=== PATIENT | female | born 1995 | race Caucasian/White ===

== ENCOUNTER 2016-11-04 06:54 | Emergency (ER) | payer SELFPAY ==
--- NOTE | 2016-11-04 07:55 | ER Document Report ---
ED GI/ - General Chief Complaint: Urinary Problem Stated Complaint: URINARY ISSUES/PAIN Time Seen by Provider: 11/04/16 07:35 Mode of Arrival: Ambulatory Information source: Patient Notes: Patient is a 21-year-old female who presents to the ER today for lower abdominal pain that started this morning with some dysuria some white vaginal discharge and itching, concerned she has a yeast infection. She has not been sexually active since March 2016. TRAVEL OUTSIDE OF THE [place] IN LAST 30 DAYS: No - Related Data Allergies/Adverse Reactions: codeine [Codeine] Allergy (Verified 05/20/15 10:40) rash, n and v hydrocodone [Hydrocodone] Allergy (Verified 05/20/15 10:40) oxycodone HCl [From Percocet] Allergy (Verified 05/20/15 10:40) rash Penicillins Allergy (Verified 05/20/15 10:40) rash tramadol Allergy (Verified 04/17/16 10:23) Past Medical History - General Information source: Patient - Social History Smoking Status: Unknown if Ever Smoked Family History: DM, Hypertension, Malignancy, Thyroid Disfunction Patient has suicidal ideation: No Patient has homicidal ideation: No Pulmonary Medical History: Reports: Hx Bronchitis - hx of Denies: Hx Asthma Renal/ Medical History: Reports: Hx Kidney Stones. Denies: Hx Peritoneal Dialysis Musculoskeltal Medical History: Denies Hx Arthritis, Reports Hx Musculoskeletal Trauma Psychiatric Medical History: Reports: Hx Anxiety Past Surgical History: Reports: Hx Appendectomy, Hx Kidney (Renal Surgery) - stents, Hx Nose Surgery - sinus surgery, Hx Orthopedic Surgery - right knee. Denies: Hx Hysterectomy, Hx Pacemaker - Immunizations Hx Diphtheria, Pertussis, Tetanus Vaccination: Yes Review of Systems - Review of Systems Constitutional: No symptoms reported. denies: Chills, Fever EENT: No symptoms reported Cardiovascular: No symptoms reported Respiratory: No symptoms reported Gastrointestinal: No symptoms reported Genitourinary: See HPI Female Genitourinary: See HPI Musculoskeletal: No symptoms reported Skin: No symptoms reported Hematologic/Lymphatic: No symptoms reported Neurological/Psychological: No symptoms reported Physical Exam - Vital signs Vitals: Temp Pulse Resp BP Pulse Ox 98.2 F 57 L 16 125/71 100 11/04/16 06:58 11/04/16 06:58 11/04/16 06:58 11/04/16 06:58 11/04/16 06:58 - Notes Notes: PHYSICAL EXAMINATION: GENERAL: Comfortable, but is in no acute distress. HEAD: Atraumatic, normocephalic. EYES: Pupils equal round and reactive to light, extraocular movements intact, sclera anicteric, conjunctiva are normal. NECK: Normal range of motion, supple without lymphadenopathy LUNGS: CTAB and equal. No wheezes rales or rhonchi. HEART: Regular rate and rhythm without murmurs ABDOMEN: Soft, Suprapubic tenderness. No guarding, no rebound BACK: no vertebral tenderness, normal ROM GI/: no CVA tenderness pelvic: white thick discharge in vaginal canal, normal tenderness to exam, no CMT, no adnexal tenderness EXTREMITIES: Normal range of motion, no pitting edema. No cyanosis. NEUROLOGICAL: Cranial nerves grossly intact. Normal sensory/motor exams. PSYCH: Normal mood, normal affect. SKIN: Warm, Dry, normal turgor, no rashes or lesions noted Course - Re-evaluation Re-evalutation: 11/04/16 11:10 pt did not want to wait for chlamydia/gonorrhea testing, some WBC on wet mount, no yeast or trichomonas, some leukocytes on urinalysis, will treat for uti with symptoms and also for bacterial vaginosis with white thick discharge in vaginal canal. - Vital Signs Vital signs: Temp Pulse Resp BP Pulse Ox 98.8 F 57 L 16 114/66 100 11/04/16 09:00 11/04/16 09:00 11/04/16 09:00 11/04/16 09:00 11/04/16 09:00 - Laboratory Laboratory results interpreted by me: 11/04/16 08:15 Urine Blood SMALL H Ur Leukocyte Esterase TRACE H Urine Ascorbic Acid 40 H Procedures - Pelvic Exam Pelvic exam Time completed: 08:15 Cultures obtained: Yes Wet prep obtained: Yes Bimanual exam performed: Yes - no CMT, no adnexal tenderness Discharge - Discharge Clinical Impression: Bacterial vaginosis UTI (urinary tract infection) Qualifiers: Urinary tract infection type: acute cystitis Hematuria presence: with hematuria Qualified Code(s): N30.01 - Acute cystitis with hematuria Condition: Stable Disposition: HOME, SELF-CARE Additional Instructions: Drink plenty of water. Return immediately for any new or worsening symptoms. Follow up with primary care provider, call tomorrow to make followup appointment. Prescriptions: Cephalexin Monohydrate [Keflex 500 mg Capsule] 500 mg PO Q6H 5 Days Metronidazole [Flagyl 500 mg Tablet] 500 mg PO BID #14 tablet
[2016-11-04] MEDS ORDERED: IBUPROFEN 800 MG TABLET PO ONE (08:15)
[2016-11-04 08:34] LABS: APPEARANCE,URINE SLIGHTLY-CLOUDY; BILIRUBIN,URINE NEGATIVE (NEGATIVE); GLUCOSE, URINE NEGATIVE (NEGATIVE); KETONES,URINE NEGATIVE (NEGATIVE); LEUKOCYTE ESTERASE,URINE TRACE (NEGATIVE); NITRITE,URINE NEGATIVE (NEGATIVE); PROTEIN,URINE NEGATIVE (NEGATIVE); URINE SPECIFIC GRAVITY 1.011; UROBILINOGEN,URINE NEGATIVE mg/dL (<2.0)
[2016-11-04 09:24] VITALS: BP 114/66
[2016-11-04 09:53] LABS: CHLAM PCR NOT DETECTED (NOT DETECT)
== END 2016-11-04 09:08 | disposition home or self-care (01) ==
LOC: ER 06:54
DX: N30.01 Acute cystitis with hematuria (principal); N76.0 Acute vaginitis; R39.198 Other difficulties with micturition; R30.9 Painful micturition, unspecified; R10.30 Lower abdominal pain, unspecified
CPT/HCPCS: 81001; 81025; 87210; 87491; 87591; 99283

== ENCOUNTER → 2016-11-06 | Outpatient (CLI) | payer SELFPAY ==
--- NOTE | 2016-11-10 07:59 | WOMENS IMAGING REPORT ---
EXAM DESCRIPTION: U/S BREAST UNILAT LIMITED COMPLETED DATE/TIME: 11/06/2016 11:13 am REASON FOR STUDY: N63, BREAST LUMP COMPARISON: None. TECHNIQUE: Real-time and static grayscale imaging performed of the left breast targeted to the area of clinical concern. Selected color Doppler images recorded. LIMITATIONS: None. FINDINGS: The patient indicates a palpable nodule on the left, at the 1 to 2 o'clock position. In this area, a red raised skin lesion is present, by ultrasound this measures 6 x 3 by mm in size an d dates completely included in the scan, likely a developing sebaceous cyst. No underlying breast pa renchymal abnormalities at the 1 to 2 o'clock position. IMPRESSION: No suspicious findings detected by ultrasound. BIRAD: 2 Benign findings. RECOMMENDATION: RECOMMENDED FOLLOW-UP: Follow-up as clinically indicated. COMMENT: The [employer] (ACR) has developed recommendations for screening MRI of the breasts in certain patient populations, to be used in conjunction with mammography. Breast MRI s urveillance may be appropriate for women with more than 20% lifetime risk of developing breast cancer as determined by genetic testing, significant family history of the disease, or history of mantle r adiation for Hodgkins Disease. ACR Practice Guidelines 2008. TECHNICAL DOCUMENTATION: JOB ID: [id number] [employer]- All Rights Reserved
== END ==
LOC: WI 12:54
PROVIDERS: ATTEND Nurse Practitioner Women's Health
DX: N63 Unspecified lump in breast (principal)
CPT/HCPCS: 76642

== ENCOUNTER 2017-02-06 20:12 | Emergency (ER) | payer SELFPAY ==
[2017-02-06 20:31] VITALS: BP 141/101
--- NOTE | 2017-02-06 21:23 | ER Document Report ---
ED General - General Chief Complaint: Back Pain Stated Complaint: BACK AND LEG PAIN Time Seen by Provider: 02/06/17 20:43 Notes: Patient is a 21-year-old female presents emergency department complaining of right thigh discomfort but also right flank pain. Patient states her right flank pain started 3 days ago. She states she is also dark urine and been going more frequently. She states she is concerned she is a urinary tract infection. Otherwise denies any nausea, vomiting, abdominal pain, fevers or chills. Suffered a right thigh injury back 2 months ago and was evaluated at [facility]. She states that she is yet to follow-up with her primary care doctor regarding her muscular injury of the site. TRAVEL OUTSIDE OF THE [place] IN LAST 30 DAYS: No - Related Data Allergies/Adverse Reactions: codeine [Codeine] Allergy (Verified 02/06/17 20:28) rash, n and v hydrocodone [Hydrocodone] Allergy (Verified 02/06/17 20:28) oxycodone HCl [From Percocet] Allergy (Verified 02/06/17 20:28) rash Penicillins Allergy (Verified 02/06/17 20:28) rash tramadol Allergy (Verified 02/06/17 20:28) Home Medications: Current Home Medications Aripiprazole [Abilify 2 mg Tablet] 2 mg PO DAILY 02/06/17 [History] Atenolol [Tenormin] 25 mg PO BID 02/06/17 [History] Buspirone HCl 1 tab PO TID 02/06/17 [History] Past Medical History - Social History Smoking Status: Current Every Day Smoker Chew tobacco use (# tins/day): No Frequency of alcohol use: Social Family History: DM, Hypertension, Malignancy, Thyroid Disfunction Patient has suicidal ideation: No Patient has homicidal ideation: No Pulmonary Medical History: Reports: Hx Bronchitis - hx of Denies: Hx Asthma Renal/ Medical History: Reports: Hx Kidney Stones. Denies: Hx Peritoneal Dialysis Musculoskeltal Medical History: Denies Hx Arthritis, Reports Hx Musculoskeletal Trauma Psychiatric Medical History: Reports: Hx Anxiety Past Surgical History: Reports: Hx Appendectomy, Hx Kidney (Renal Surgery) - stents, Hx Nose Surgery - sinus surgery, Hx Orthopedic Surgery - right knee. Denies: Hx Hysterectomy, Hx Pacemaker - Immunizations Hx Diphtheria, Pertussis, Tetanus Vaccination: Yes Review of Systems - Review of Systems Constitutional: No symptoms reported Gastrointestinal: See HPI Genitourinary: See HPI Female Genitourinary: See HPI Musculoskeletal: See HPI -: Yes All other systems reviewed and negative Physical Exam - Vital signs Vitals: Temp Pulse Resp BP Pulse Ox 98.6 F 88 18 141/101 H 97 02/06/17 20:28 02/06/17 20:28 02/06/17 20:28 02/06/17 20:28 02/06/17 20:28 - General General appearance: Appears well, Alert In distress: None - Abdominal Inspection: Normal Distension: No distension Bowel sounds: Normal Tenderness: Tender - suprapubic tenderness Organomegaly: No organomegaly - Back Back: CVA tenderness - right flank - Extremities General lower extremity: Nontender, Normal color, Normal ROM, Normal strength, Normal temperature, Normal weight bearing - Neurological Motor strength normal: LLE, RLE Additional motor exam normals: No: Weakness Sensory: Normal - Skin Skin Temperature: Warm Skin Moisture: Dry Skin Color: Normal Skin Turgor: Elastic Location of irregularity: Extremities - right thigh with evidenc eof mild eccymosis Course - Re-evaluation Re-evalutation: 02/06/17 22:03 Patient is a 21-year-old female hemodynamically stable, no acute distress afebrile. Given patient's leg complaint is chronic told her to follow-up with her primary care provider. At this time No evidence of a septic joint, gout flare, dislocation, or fracture on exam and imaging. Vitals wnl. At this time, I do not see an indication for labs or further imaging. Will discharge with conservative measures, return precautions, and follow-up recommendations. Urinalysis does show evidence of urinary tract infection, patient otherwise stable without concerns for sepsis. Will discharge home on p.o. antibiotics and to follow-up with primary care provider this week. - Vital Signs Vital signs: Temp Pulse Resp BP Pulse Ox 98.6 F 88 18 141/101 H 97 02/06/17 20:28 02/06/17 20:28 02/06/17 20:28 02/06/17 20:28 02/06/17 20:28 - Laboratory Laboratory results interpreted by me: 02/06/17 21:15 Urine Protein 100 H Urine Ketones TRACE H Urine Blood MODERATE H Urine Urobilinogen 2.0 H Ur Leukocyte Esterase MODERATE H Discharge - Discharge Clinical Impression: UTI (urinary tract infection) Qualifiers: Urinary tract infection type: acute cystitis Hematuria presence: with hematuria Qualified Code(s): N30.01 - Acute cystitis with hematuria Condition: Good Disposition: HOME, SELF-CARE Additional Instructions: URINARY TRACT INFECTION: Your evaluation indicates that you have a urinary tract infection. This is due to germs growing in the bladder. This is a common problem. This infection usually responds quickly to antibiotics. Your antibiotic should be taken exactly as prescribed. Drink plenty of fluids -- three to four quarts a day. Occasionally, a bladder anesthetic will be prescribed to help stop the feeling of urgency until the antibiotic has a chance to clear the infection. This may cause your urine to be dark orange. Certain urine infections require a culture. If the doctor obtained a culture, the results will be back in two days. You should call to see if a change in treatment is needed. A repeat urinalysis after you finish treatment is often recommended. The physician will let you know if further testing is required. Call the doctor if you develop fever, chills, flank pain, inability to urinate, or blood in the urine. ANTIBIOTIC THERAPY: You have been given an antibiotic prescription. It's important that you take all the medication, unless instructed otherwise by your physician. Failure to complete the entire course can result in relapse of your condition. Common side effects of antibiotics include nausea, intestinal cramping, or diarrhea. Women may develop vaginal yeast infections, and babies can get yeast (thrush) in the mouth following the use of antibiotics. Contact your physician if you develop significant side effects from this medication. Allergy to this antibiotic can result in hives, wheezing, faintness, or itching. If symptoms of allergy occur, stop the medication and call the doctor. TRIMETHOPRIM-SULFA: You have been given a prescription for trimethoprim-sulfa (TMS, Septra, Bactrim). This is a combination antibiotic of the sulfa class, often used for urinary tract infections, middle ear infections, bronchitis, shigella intestinal infection, and Pneumocystis pneumonia. TMS is usually well-tolerated. Occasional side effects include nausea and decreased appetite. Septra is not recommended for infants less than two months of age. Do not take this medication if you have experienced severe side effects or allergy to sulfa medicine. You should stop this medicine at once and contact your physician if you develop any rash, joint pain, shortness of breath, bruising, or jaundice ( yellow color in the skin), or if you develop any other new or unusual symptoms. FOLLOW-UP CARE: If you have been referred to a physician for follow-up care, call the physician s office for an appointment as you were instructed or within the next two days. If you experience worsening or a significant change in your symptoms, notify the physician immediately or return to the Emergency Department at any time for re-evaluation. Prescriptions: Sulfamethoxazole/Trimethoprim [Bactrim Ds Tablet] 1 each PO BID #6 tablet Referrals: SIXTO OSBORN FNP [NURSE PRACTITIONER] - Follow up in 3-5 days
[2017-02-06 21:34] LABS: APPEARANCE,URINE SLIGHTLY-CLOUDY; BILIRUBIN,URINE NEGATIVE (NEGATIVE); GLUCOSE, URINE NEGATIVE (NEGATIVE); KETONES,URINE TRACE mg/dL (NEGATIVE); LEUKOCYTE ESTERASE,URINE MODERATE (NEGATIVE); NITRITE,URINE NEGATIVE (NEGATIVE); PROTEIN,URINE 100 mg/dL (NEGATIVE); URINE SPECIFIC GRAVITY 1.025
[2017-02-06] MEDS ORDERED: SULFAMETHOXAZOLE/TRIMETHOPRIM 800-160 MG TABLET PO ONE (21:41)
== END 2017-02-06 21:54 | disposition home or self-care (01) ==
LOC: ER 20:12
DX: N30.01 Acute cystitis with hematuria (principal); M54.9 Dorsalgia, unspecified; M79.651 Pain in right thigh; Z79.899 Other long term (current) drug therapy; F17.200 Nicotine dependence, unspecified, uncomplicated
CPT/HCPCS: 81001; 81025; 99283

== ENCOUNTER 2018-02-11 07:19 | Emergency (ER) | payer OTHER ==
[2018-02-11 07:53] LABS: APPEARANCE,URINE SLIGHTLY-CLOUDY; BILIRUBIN,URINE NEGATIVE (NEGATIVE); CALCIUM OXALATE CRYSTALS,URINE MODERATE /HPF; COLOR,URINE YELLOW; GLUCOSE, URINE NEGATIVE (NEGATIVE); KETONES,URINE TRACE mg/dL (NEGATIVE); LEUKOCYTE ESTERASE,URINE SMALL (NEGATIVE); NITRITE,URINE NEGATIVE (NEGATIVE); PROTEIN,URINE 30 mg/dL (NEGATIVE); URINE SPECIFIC GRAVITY 1.031
--- NOTE | 2018-02-11 08:13 | ER Document Report ---
ED GI/ - General Chief Complaint: Urinary Problem Stated Complaint: ABDOMEN PAIN Time Seen by Provider: 02/11/18 08:10 Notes: The patient is a 22 yo female who presents with increased urination and dysuria. She is also having some flank pain, RUQ pain and watery diarrhea. She has already seen her primary care physician twice for a urinary tract infection and was switched from Cipro to Levaquin and Flagyl. Patient has a history of a right urethral stent after hydronephrosis from an unknown cause a few years ago. She denies fevers, hematuria, vaginal discharge, rash or headaches. TRAVEL OUTSIDE OF THE [place] IN LAST 30 DAYS: No - Related Data Allergies/Adverse Reactions: codeine [Codeine] Allergy (Verified 02/11/18 07:37) rash, n and v hydrocodone [Hydrocodone] Allergy (Verified 02/11/18 07:37) oxycodone HCl [From Percocet] Allergy (Verified 02/11/18 07:37) rash Penicillins Allergy (Verified 02/11/18 07:37) rash tramadol Allergy (Verified 02/11/18 07:37) Past Medical History - General Information source: Patient - Social History Smoking Status: Unknown if Ever Smoked Family History: DM, Hypertension, Malignancy, Thyroid Disfunction Pulmonary Medical History: Reports: Hx Bronchitis - hx of Denies: Hx Asthma Renal/ Medical History: Reports: Hx Kidney Stones. Denies: Hx Peritoneal Dialysis Musculoskeletal Medical History: Denies Hx Arthritis, Reports Hx Musculoskeletal Trauma Psychiatric Medical History: Reports: Hx Anxiety Past Surgical History: Reports: Hx Appendectomy, Hx Kidney (Renal Surgery) - stents, Hx Nose Surgery - sinus surgery, Hx Orthopedic Surgery - right knee. Denies: Hx Hysterectomy, Hx Pacemaker - Immunizations Hx Diphtheria, Pertussis, Tetanus Vaccination: Yes Review of Systems - Review of Systems Notes: REVIEW OF SYSTEMS: CONSTITUTIONAL: -fevers, -chills EENT: -eye pain, -difficulty swallowing, -nasal congestion CARDIOVASCULAR: -chest pain, -syncope. RESPIRATORY: -cough, -SOB GASTROINTESTINAL: +RUQ abdominal pain, +nausea, +vomiting, +watery diarrhea GENITOURINARY: +dysuria, -hematuria MUSCULOSKELETAL: +right flank pain, -neck pain SKIN: -rash or skin lesions. HEMATOLOGIC: -easy bruising or bleeding. LYMPHATIC: -swollen, enlarged glands. NEUROLOGICAL: -altered mental status or loss of consciousness, -headache, - neurologic symptoms PSYCHIATRIC: -anxiety, -depression. ALL OTHER SYSTEMS REVIEWED AND NEGATIVE. Physical Exam - Vital signs Vitals: Temp Pulse Resp BP Pulse Ox 98.4 F 81 18 133/76 H 100 02/11/18 07:24 02/11/18 07:24 02/11/18 07:24 02/11/18 07:24 02/11/18 07:24 - Notes Notes: PHYSICAL EXAMINATION: GENERAL: Well-appearing, well-nourished and in no acute distress. HEAD: Atraumatic, normocephalic. EYES: Pupils equal round and reactive to light, extraocular movements intact, sclera anicteric, conjunctiva are normal. ENT: nares patent, oropharynx clear without exudates. Moist mucous membranes. NECK: Normal range of motion, supple without lymphadenopathy LUNGS: Breath sounds clear to auscultation bilaterally and equal. No wheezes rales or rhonchi. HEART: Regular rate and rhythm without murmurs ABDOMEN: Soft, mild RUQ tenderness, normoactive bowel sounds. No guarding, no rebound. No masses appreciated. EXTREMITIES: Normal range of motion, no pitting or edema. No cyanosis. BACK: Mild right CVA tenderness. NEUROLOGICAL: Cranial nerves grossly intact. Normal speech, normal gait. Normal sensory and motor exams. PSYCH: Normal mood, normal affect. SKIN: Warm, Dry, normal turgor, no rashes or lesions noted. Course - Re-evaluation Re-evalutation: Patient with chronic dysuria, right upper quadrant pain, right flank pain and watery diarrhea. Blood work is unremarkable and urine shows a possible UTI. She is already on Levaquin. Looking through prior microbiology results, she frequently grows out lactobacillus from her urinary cultures. Her last bacterial UTI in 2011 grew out Proteus, which was pansensitive. We will not switch her antibiotic, but will add Pyridium to help with her dysuria symptoms. CT abdomen pelvis obtained due to right flank pain with calcium oxalate crystals, but no renal stones were seen. Right upper quadrant ultrasound also performed to assess for gallbladder pathology, but the gallbladder was not seen on the ultrasound. Her LFTs and bilirubin were normal. Will begin her on Prilosec and Zofran with follow-up at her primary care physician and urologist. - Vital Signs Vital signs: Temp Pulse Resp BP Pulse Ox 98.4 F 81 18 133/76 H 100 02/11/18 07:24 02/11/18 07:24 02/11/18 07:24 02/11/18 07:24 02/11/18 07:24 - Laboratory Result Diagrams: 02/11/18 09:45 02/11/18 09:45 Laboratory results interpreted by me: 02/11/18 02/11/18 07:30 09:45 Direct Bilirubin 0.5 H Urine Protein 30 H Urine Ketones TRACE H Urine Blood MODERATE H Urine Urobilinogen 2.0 H Ur Leukocyte Esterase SMALL H - Diagnostic Test Radiology reviewed: Image reviewed, Reports reviewed Radiology results interpreted by me: CT A/P: NAD RUQ US: Gallbladder not visualized, no other acute changes Discharge - Discharge Clinical Impression: Dysuria Abdominal pain Qualifiers: Abdominal location: upper abdomen, unspecified Qualified Code(s): R10.10 - Upper abdominal pain, unspecified Nausea & vomiting Qualifiers: Vomiting type: unspecified Vomiting Intractability: non-intractable Qualified Code(s): R11.2 - Nausea with vomiting, unspecified Condition: Good Disposition: HOME, SELF-CARE Additional Instructions: ABDOMINAL PAIN: There are many causes of abdominal pain. Pain can mean a serious problem requiring surgery (such as appendicitis). It can also be an innocent problem that goes away on its own (such as a viral infection). Often, time must pass to determine the cause of pain. The physician does not feel that hospitalization is necessary, at present. Things may change within the next 24 hours. Call the doctor or come back for re- examination if any problems occur, such as: (1) Pain that becomes more severe, steady, or becomes concentrated in one specific area. Also, pain that is more severe with movement or coughing. (2) Vomiting that persists or becomes more frequent. (3) Blood in the vomitus, urine, or bowel movements. Blood in the stool may have a tarry or black appearance. (4) Shaking chills or fever greater than 100 degrees F. (5) The abdomen becomes more distended or swollen. (6) Bowel movements cease. (7) Failure to improve as expected. NORMAL EXAM AND WORKUP: At this time, your examination and workup show no significant abnormality. No significant abnormal physical findings are noted. All laboratory, EKG, and imaging (x-ray, CT scans, ultrasound) studies that were ordered show no significant abnormality. Although your examination and all studies that were ordered showed no significant abnormal finding, there are no examinations and no studies that are 100% accurate. There is always the possibility that some abnormality could exist and not be detected with physical examination or within the limits and capabilities of laboratory and other studies. You should return or follow up as you were instructed on your visit today for further evaluation if your symptoms do not resolve. ANTINAUSEA MEDICATION: You have been given a medication to suppress nausea and vomiting. This type of medication can be given as a shot, pill, or suppository. It will usually last for many hours. Pills and shots usually last six to eight hours, suppositories last about 12 hours. For the typical illness, only one or two doses of the medication may be necessary. Mild lightheadedness may occur. This type of medicine can cause drowsiness. Do not drive or operate dangerous machinery while under its influence. Do not mix with alcohol. See your doctor at once if you have muscle spasms or tightness, or uncontrollable motions (particularly of the neck, mouth, or jaw). Persistent vomiting or severe lightheadedness should also be evaluated by the physician. FOLLOW-UP CARE: If you have been referred to a physician for follow-up care, call the physician s office for an appointment as you were instructed or within the next two days. If you experience worsening or a significant change in your symptoms, notify the physician immediately or return to the Emergency Department at any time for re-evaluation. URINARY ANESTHETIC AGENT: You have been given a medication (Pyridium) for urinary tract discomfort. This medicine numbs the lining of the bladder and urethra, resulting in less pain, burning, and urgency. You may take it as needed, according to instructions. When the symptoms resolve, you can stop this medication (be sure to continue any other medications the doctor has given you). This medicine turns the urine a dark orange. It may stain underwear. Occasionally, it can cause nausea. Return for evaluation if there are any unexpected effects, such as itching, hives, or shortness of breath. FOLLOW-UP CARE: If you have been referred to a physician for follow-up care, call the physician s office for an appointment as you were instructed or within the next two days. If you experience worsening or a significant change in your symptoms, notify the physician immediately or return to the Emergency Department at any time for re-evaluation. Prescriptions: Omeprazole Magnesium [Prilosec Otc] 20 mg PO Q12H #14 tablet. Ondansetron [Zofran Odt 4 mg Tablet] 1 - 2 tab PO Q4H PRN #15 tab.rapdis PRN Reason: For Nausea/Vomiting Phenazopyridine HCl [Pyridium 200 mg Tablet] 200 mg PO TID #15 tablet Referrals: SIXTO OSBORN FNP [Primary Care Provider] - Follow up as needed KURT BARLOW MD [ACTIVE STAFF] - Follow up as needed
[2018-02-11] MEDS ORDERED: KETOROLAC TROMETHAMINE INJ/PF 30 MG/1 ML SDV IV ONE (08:26)
[2018-02-11] MEDS ORDERED: ONDANSETRON HCL INJ/PF 4 MG/2 ML SDV IV ONE (08:26)
[2018-02-11] MEDS ORDERED: NORMAL SALINE 1000 ML 1,000 ML IV ONE (08:26)
--- NOTE | 2018-02-11 09:02 | RADIOLOGY REPORT (SQ) ---
EXAM DESCRIPTION: CT ABD/PELVIS NO ORAL OR IV COMPLETED DATE/TIME: 02/11/2018 8:36 am REASON FOR STUDY: right flank pain into groin, CaOx crystals in UA COMPARISON: 04/19/2011. TECHNIQUE: CT scan of the abdomen and pelvis performed without intravenous or oral contrast. Images reviewed with lung, soft tissue, and bone windows. Reconstructed coronal and sagittal MPR images revi ewed. All images stored on PACS. All CT scanners at this facility use dose modulation, iterative reconstruction, and/or weight based d osing when appropriate to reduce radiation dose to as low as reasonably achievable (ALARA). [facility]: Dose Right [facility]: CareDose [facility]: Dose Right [facility]: Teradose 4D [facility]: [employer] RADIATION DOSE: CT Rad equipment meets quality standard of care and radiation dose reduction techniq ues were employed. CTDIvol: 5.3 mGy. DLP: 261 mGy-cm.mGy. LIMITATIONS: None. FINDINGS: LOWER CHEST: No significant findings. No nodules or infiltrates. NON-CONTRASTED LIVER, SPLEEN, ADRENALS: Evaluation limited by lack of IV contrast. No identified sign ificant masses. PANCREAS: No masses. No peripancreatic inflammatory changes. GALLBLADDER: No identified stones by CT criteria. No inflammatory changes to suggest cholecystitis. RIGHT KIDNEY AND URETER: No suspicious masses. Assessment limited by lack of IV contrast. No signif icant calcifications. No hydronephrosis or hydroureter. LEFT KIDNEY AND URETER: No suspicious masses. Assessment limited by lack of IV contrast. No signifi cant calcifications. No hydronephrosis or hydroureter. AORTA AND RETROPERITONEUM: No aneurysm. No retroperitoneal masses or adenopathy. BOWEL AND PERITONEAL CAVITY: No obvious masses or inflammatory changes. No free fluid. APPENDIX: Surgically absent. PELVIS, BLADDER, AND ABDOMINAL WALL:No abnormal masses. No free fluid. Bladder normal. BONES: No significant findings. OTHER: No other significant finding. IMPRESSION: NO SIGNIFICANT OR ACUTE PROCESS IN THE ABDOMEN OR PELVIS. COMMENT: Quality ID # [id number]: Final reports with documentation of one or more dose reduction techniques (e.g., Automated exposure control, adjustment of the mA and/or kV according to patient size, use of iterative reconstruction technique) TECHNICAL DOCUMENTATION: JOB ID: [id number] [employer]- All Rights Reserved Reading location - IP/workstation name: [email or web address]
--- NOTE | 2018-02-11 09:29 | RADIOLOGY REPORT (SQ) ---
EXAM DESCRIPTION: U/S ABDOMEN LIMITED W/O DOP COMPLETED DATE/TIME: 02/11/2018 9:09 am REASON FOR STUDY: RUQ tenderness COMPARISON: None. TECHNIQUE: Dynamic and static grayscale images acquired of the abdomen and recorded on PACS. Additio nal selected color Doppler and spectral images recorded. LIMITATIONS: None. FINDINGS: PANCREAS: No masses. Visualized pancreatic duct normal caliber. LIVER: No masses. Echotexture normal. LIVER VASCULATURE: Normal directional flow of the main portal vein and hepatic veins. GALLBLADDER: Not visualized. ULTRASOUND-DETECTED LARA'S SIGN: Negative. INTRAHEPATIC DUCTS AND COMMON DUCT: CBD and intrahepatic ducts normal caliber. No filling defects. INFERIOR VENA CAVA: Normal flow. AORTA: No aneurysm. RIGHT KIDNEY: Normal size. Normal echogenicity. No solid or suspicious masses. No hydronephrosis. No calcifications. PERITONEAL AND RIGHT PLEURAL SPACE: No ascites or effusions. OTHER: No other significant findings. IMPRESSION: NORMAL RIGHT UPPER QUADRANT ULTRASOUND. THE GALLBLADDER IS NOT VISUALIZED BY ULTRASOUND. ON THE CT DONE EARLIER IN THE DAY, THE GALLBLADDER IS SMALL AND CONTRACTED AND LOCATED UNDER THE LEFT LOBE OF THE LIVER. NO ABNORMAL FINDING ON CT. TECHNICAL DOCUMENTATION: JOB ID: [id number] [employer]- All Rights Reserved Reading location - IP/workstation name: [email or web address]
[2018-02-11 09:58] LABS: ABSOLUTE BASOPHILS # (AUTO) 0.1 10^3/uL (0.0-0.2); ABSOLUTE EOSINOPHILS # (AUTO) 0.1 10^3/uL (0.0-0.6); ABSOLUTE LYMPHOCYTES (AUTO) 1.6 10^3/uL (0.5-4.7); ABSOLUTE MONOCYTES (AUTO) 0.5 10^3/uL (0.1-1.4); ABSOLUTE NEUT (AUTO) 4.7 10^3/uL (1.7-8.2); BASOPHILS % (AUTO) 0.8 % (0-2); EOSINOPHILS % (AUTO) 1.4 % (0-6); HEMATOCRIT 42.1 % (36.0-47.0); HEMOGLOBIN 14.5 g/dL (12.0-15.5); LYMPHOCYTES % (AUTO) 23.5 % (13-45); MEAN CORPUSCULAR HEMOGLOBIN 31.5 pg (27.0-33.4); MEAN CORPUSCULAR HGB CONC 34.5 g/dL (32.0-36.0); MEAN CORPUSCULAR VOLUME 91 fl (80-97); MONOCYTES % (AUTO) 6.8 % (3-13); PLATELET COUNT 207 10^3/uL (150-450); RED BLOOD COUNT 4.61 10^6/uL (3.72-5.28); RED CELL DISTRIBUTION WIDTH 12.6 % (11.5-14.0); SEGMENTED NEUTROPHILS % (AUTO) 67.5 % (42-78); TOTAL CELLS COUNTED % (AUTO) 100 %
[2018-02-11 10:24] LABS: ALANINE AMINOTRANSFERASE 19 U/L (9-52); ALBUMIN 4.5 g/dL (3.5-5.0); ALKALINE PHOSPHATASE 40 U/L (38-126); ANION GAP 11 (5-19); ASPARTATE AMINO TRANSFERASE 22 U/L (14-36); BILIRUBIN,DIRECT 0.5 mg/dL (0.0-0.4); BILIRUBIN,TOTAL 0.9 mg/dL (0.2-1.3); BLOOD UREA NITROGEN 18 mg/dL (7-20); CALCIUM 9.7 mg/dL (8.4-10.2); CARBON DIOXIDE 24 mmol/L (22-30); CHLORIDE 104 mmol/L (98-107); GLUCOSE 80 mg/dL (75-110); LIPASE 126.8 U/L (23-300); POTASSIUM 4.2 mmol/L (3.6-5.0); SODIUM 138.8 mmol/L (137-145); TOTAL PROTEIN 7.5 g/dL (6.3-8.2)
[2018-02-11 11:50] VITALS: BP 117/60
== END 2018-02-11 11:50 | disposition home or self-care (01) ==
LOC: ER 07:19
DX: R30.0 Dysuria (principal); R10.10 Upper abdominal pain, unspecified; R11.2 Nausea with vomiting, unspecified; R35.0 Frequency of micturition; R19.7 Diarrhea, unspecified; Z88.6 Allergy status to analgesic agent; Z88.0 Allergy status to penicillin; Z87.442 Personal history of urinary calculi
CPT/HCPCS: 99284; 96361; 96374; 96375; 36415; 87086; 83690; 85025; 81025; 80053; 81001; 76705; 74176; J1885; J2405

== ENCOUNTER → 2018-04-29 | Outpatient (CLI) | payer OTHER ==
--- NOTE | 2018-04-29 16:58 | RADIOLOGY REPORT (SQ) ---
EXAM DESCRIPTION: NM GASTRIC EMPTYING STUDY COMPLETED DATE/TIME: 04/29/2018 1:19 pm REASON FOR STUDY: N/V (R11.2) R11.2 NAUSEA WITH VOMITING, UNSPECIFIED COMPARISON: None. RADIONUCLIDE AND DOSE: 2.2 millicuries Tc-99m Sulfur Colloid. Egg salad sandwich The route of agent administration: Oral. TECHNIQUE: 1 minute serial static imaging performed at time of meal, 1 hour, 2 hours, 3 hours as nee ded. Once stomach reaches 90% emptying, the test is complete. Image intensity values plotted with re spect to time with linear regression algorithm. LIMITATIONS: None. FINDINGS: Patient was observed for 4 hours. Immediate post meal serves as baseline. Gastric emptying at 90 minutes was 72%. Gastric emptying at 180 minutes was 82%. Normal values: 60 minutes: 30-90% retained. If less than 30%, abnormally rapid emptying. If greater than 90%, del ayed gastric emptying. 120 minutes: <60% retained. If greater than 60%, delayed gastric emptying. 240 minutes: <10% retained. If greater than 10%, delayed gastric emptying. IMPRESSION: NORMAL GASTRIC EMPTYING. TECHNICAL DOCUMENTATION: JOB ID: [id number] [employer]- All Rights Reserved rev-10/01 Reading location - IP/workstation name: [email or web address]
== END ==
LOC: RAD 07:29
PROVIDERS: ATTEND Internal Medicine Gastroenterology
DX: R11.2 Nausea with vomiting, unspecified (principal)
CPT/HCPCS: 78264; A9541

== ENCOUNTER 2018-05-19 09:21 | Emergency (ER) | payer OTHER ==
--- NOTE | 2018-05-19 09:51 | ER Document Report ---
ED Medical Screen (RME) - General Chief Complaint: Flank Pain Stated Complaint: URINARY ISSUE Time Seen by Provider: 05/19/18 09:48 TRAVEL OUTSIDE OF THE [place].S. IN LAST 30 DAYS: No - Related Data Allergies/Adverse Reactions: codeine [Codeine] Allergy (Verified 05/19/18 09:22) rash, n and v hydrocodone [Hydrocodone] Allergy (Verified 05/19/18 09:22) oxycodone HCl [From Percocet] Allergy (Verified 05/19/18 09:22) rash Penicillins Allergy (Verified 05/19/18 09:22) rash tramadol Allergy (Verified 05/19/18 09:22) Past Medical History - Social History Family history: Reviewed & Not Pertinent Pulmonary Medical History: Reports: Hx Bronchitis - hx of Denies: Hx Asthma Renal/ Medical History: Reports: Hx Kidney Stones. Denies: Hx Peritoneal Dialysis Musculoskeltal Medical History: Denies Hx Arthritis, Reports Hx Musculoskeletal Trauma Psychiatric Medical History: Reports: Hx Anxiety Past Surgical History: Reports: Hx Appendectomy, Hx Kidney (Renal Surgery) - stents, Hx Nose Surgery - sinus surgery, Hx Orthopedic Surgery - right knee. Denies: Hx Hysterectomy, Hx Pacemaker - Immunizations Hx Diphtheria, Pertussis, Tetanus Vaccination: Yes Physical Exam - Vital signs Vitals: Temp Pulse Resp BP Pulse Ox 98.4 F 66 18 134/98 H 100 05/19/18 09:24 05/19/18 09:24 05/19/18 09:24 05/19/18 09:24 05/19/18 09:24 Course - Re-evaluation Re-evalutation: 05/19/18 09:50 23-year-old female with recurrent kidney infections in the past for which she has been seen by a field radio technician. She called his office yesterday because she was having intense right-sided pain which prompted her to come to the emergency room. She is once had a stent placed for hydronephrosis on the right side in 2008. There was some concern that she may potentially have underlying kidney disease. I have seen and performed a rapid medical screening examination on this patient, workup has been initiated however there will require further evaluation reassessment and disposition determination from a secondary provider. - Vital Signs Vital signs: Temp Pulse Resp BP Pulse Ox 98.4 F 66 18 134/98 H 100 05/19/18 09:24 05/19/18 09:24 05/19/18 09:24 05/19/18 09:24 05/19/18 09:24 Doctor's Discharge - Discharge Referrals: KYLE SAHA MD [Primary Care Provider] - Follow up as needed
[2018-05-19 10:26] LABS: ABSOLUTE BASOPHILS # (AUTO) 0.1 10^3/uL (0.0-0.2); ABSOLUTE EOSINOPHILS # (AUTO) 0.2 10^3/uL (0.0-0.6); ABSOLUTE LYMPHOCYTES (AUTO) 2.4 10^3/uL (0.5-4.7); ABSOLUTE MONOCYTES (AUTO) 0.5 10^3/uL (0.1-1.4); ABSOLUTE NEUT (AUTO) 4.2 10^3/uL (1.7-8.2); EOSINOPHILS % (AUTO) 2.4 % (0-6); LYMPHOCYTES % (AUTO) 32.4 % (13-45); MEAN CORPUSCULAR HEMOGLOBIN 31.6 pg (27.0-33.4); MEAN CORPUSCULAR HGB CONC 34.9 g/dL (32.0-36.0); MEAN CORPUSCULAR VOLUME 90 fl (80-97); MONOCYTES % (AUTO) 7.1 % (3-13); PLATELET COUNT 285 10^3/uL (150-450); RED BLOOD COUNT 4.76 10^6/uL (3.72-5.28); RED CELL DISTRIBUTION WIDTH 12.6 % (11.5-14.0); SEGMENTED NEUTROPHILS % (AUTO) 57.1 % (42-78); TOTAL CELLS COUNTED % (AUTO) 100 %; WHITE BLOOD COUNT 7.4 10^3/uL (4.0-10.5)
[2018-05-19 10:30] LABS: APPEARANCE,URINE CLEAR; BILIRUBIN,URINE NEGATIVE (NEGATIVE); COLOR,URINE STRAW; GLUCOSE, URINE NEGATIVE (NEGATIVE); KETONES,URINE NEGATIVE (NEGATIVE); LEUKOCYTE ESTERASE,URINE NEGATIVE (NEGATIVE); NITRITE,URINE NEGATIVE (NEGATIVE); PROTEIN,URINE NEGATIVE (NEGATIVE); URINE SPECIFIC GRAVITY 1.005; UROBILINOGEN,URINE NEGATIVE mg/dL (<2.0)
[2018-05-19 10:51] LABS: ALANINE AMINOTRANSFERASE 22 U/L (9-52); ALBUMIN 5.4 g/dL (3.5-5.0); ALKALINE PHOSPHATASE 68 U/L (38-126); ANION GAP 11 (5-19); ASPARTATE AMINO TRANSFERASE 23 U/L (14-36); BILIRUBIN,DIRECT 0.3 mg/dL (0.0-0.4); BILIRUBIN,TOTAL 0.7 mg/dL (0.2-1.3); BLOOD UREA NITROGEN 18 mg/dL (7-20); CALCIUM 10.6 mg/dL (8.4-10.2); CARBON DIOXIDE 27 mmol/L (22-30); CHLORIDE 102 mmol/L (98-107); GLUCOSE 78 mg/dL (75-110); POTASSIUM 4.6 mmol/L (3.6-5.0); SODIUM 139.6 mmol/L (137-145); TOTAL PROTEIN 8.9 g/dL (6.3-8.2)
[2018-05-19] MEDS ORDERED: ONDANSETRON HCL INJ/PF 4 MG/2 ML SDV IV ONE (10:54)
[2018-05-19] MEDS ORDERED: KETOROLAC TROMETHAMINE INJ/PF 30 MG/1 ML SDV IV ONE (10:54)
--- NOTE | 2018-05-19 11:19 | ER Document Report ---
ED General - General Chief Complaint: Flank Pain Stated Complaint: URINARY ISSUE Time Seen by Provider: 05/19/18 09:48 Notes: Patient is a 23-year-old female that presents to the emergency department for chief complaint of right flank pain. Patient reports that she is been having this pain since yesterday, and it was worse yesterday evening, she did come to the ED but was rather busy, decided to go home and see if it improved, and it is better today, she did have associated nausea and vomiting, but that is since resolved. She is had some dysuria associated with this as well as suprapubic pain. She has had issues with this in the past, has been worked up from multiple standpoints including with the urologist, who did place a stent at some point, which has since been removed, she is also seen nephrology, and has been worked up at a tertiary center, for possible granulomatous disease, however that has not been definitively diagnosed, and she is not sure what has been causing her pain they do not have a complete understanding of why she is having recurrent flank pain. She does get recurrent UTIs, but denies any recent fevers, chills, night sweats, chest pain, shortness of breath. She reports currently being on her menstrual cycle. Past Medical History: MCKENZIE, recurrent UTIs Past Surgical History: Ureteral stent Social History: Admits to smoking cigarettes, social alcohol use, denies illicit drug. Family History: Reviewed and noncontributory for presenting illness Allergies: Reviewed, see documented allergy list. REVIEW OF SYSTEMS: Other than noted above, the 12 point review of systems was reviewed with the patient and were negative, all pertinent findings are included in the HPI. PHYSICAL EXAMINATION: Vital signs reviewed, nursing noted reviewed. GENERAL: Well-appearing, well-nourished and in no acute distress. HEAD: Atraumatic, normocephalic. EYES: Eyes appear normal, extraocular movements intact, sclera anicteric, conjunctiva are normal. ENT: nares patent, oropharynx clear without exudates. Moist mucous membranes. NECK: Normal range of motion, supple without lymphadenopathy LUNGS: Breath sounds clear to auscultation bilaterally and equal. No wheezes rales or rhonchi. HEART: Regular rate and rhythm without murmurs ABDOMEN: Soft, mild right CVA tenderness with palpation, no anterior abdominal tenderness, normoactive bowel sounds. No rebound, guarding, or rigidity. No masses appreciated. EXTREMITIES: Nontender, good range of motion, no pitting or edema. NEUROLOGICAL: No focal neurological deficits. Moves all extremities spontaneously Motor and sensory grossly intact on exam. PSYCH: Normal mood, normal affect. SKIN: Warm, Dry, normal turgor, no rashes or lesions noted on exposed skin TRAVEL OUTSIDE OF THE U.S. IN LAST 30 DAYS: No - Related Data Allergies/Adverse Reactions: codeine [Codeine] Allergy (Verified 05/19/18 09:22) rash, n and v hydrocodone [Hydrocodone] Allergy (Verified 05/19/18 09:22) oxycodone HCl [From Percocet] Allergy (Verified 05/19/18:22) rash Penicillins Allergy (Verified 05/19/18:22) rash tramadol Allergy (Verified 05/19/18:) Past Medical History - Social History Smoking Status: Current Every Day Smoker Chew tobacco use (# tins/day): No Frequency of alcohol use: None Drug Abuse: None Family History: DM, Hypertension, Malignancy, Thyroid Disfunction Patient has suicidal ideation: No Patient has homicidal ideation: No Pulmonary Medical History: Reports: Hx Bronchitis - hx of Denies: Hx Asthma Renal/ Medical History: Reports: Hx Kidney Stones. Denies: Hx Peritoneal Dialysis Musculoskeletal Medical History: Denies Hx Arthritis, Reports Hx Musculoskeletal Trauma Psychiatric Medical History: Reports: Hx Anxiety Past Surgical History: Reports: Hx Appendectomy, Hx Kidney (Renal Surgery) - stents, Hx Nose Surgery - sinus surgery, Hx Orthopedic Surgery - right knee. Denies: Hx Hysterectomy, Hx Pacemaker - Immunizations Hx Diphtheria, Pertussis, Tetanus Vaccination: Yes Physical Exam - Vital signs Vitals: Temp Pulse Resp BP Pulse Ox 98.4 F 66 18 134/98 H 100 05/19/18 09:24 05/19/18 09:24 05/19/18 09:24 05/19/18 09:24 05/19/18 09:24 Course - Re-evaluation Re-evalutation: Patient seen and examined vital signs reviewed. Laboratory data and imaging were ordered as appropriate for the patient's presenting symptoms and complaint, with consideration of any critical or life threatening conditions that may be associated with their obtained history and exam as noted above. Patient was treated with IV fluids, and Zofran Results were reviewed when available and demonstrated mild hematuria in the urine, which could be contaminant from her menstrual cycle, however given her history, obtain CT abdomen and pelvis, without contrast to look for renal stone, which was negative for any acute process, her blood work was otherwise unremarkable, normal renal function. The patient was re-evaluated and was improved, pain was tolerable I discussed with her at length, the possibilities of the causes of her symptoms, from renal colic, to ureteral spasm, to possible ureteral stricture, and that she should f ollow-up with urology, as well as her pathology manager, which she is agreeable to she will make these phone calls to set up appointments Evaluation was most consistent with renal colic, patient was also given 5 days of Keflex, and Pyridium for her symptoms. Results were discussed with the patient at this point, after careful consideration I feel that that patient can be discharged from the emergency department, the patient was educated treatments and reasons to return to the emergency department based on their presumed diagnosis as noted above, they were advised to followup with a primary care physician in 2-3 days. Patient was agreeable to plan of care. *Note is created using voice recognition software and may contain spelling, syntax or grammatical errors. Laboratory 05/19/18 05/19/18 05/19/18 10:06 10:06 10:06 WBC 7.4 RBC 4.76 Hgb 15.0 Hct 43.0 MCV 90 MCH 31.6 MCHC 34.9 RDW 12.6 Plt Count 285 Seg Neutrophils % 57.1 Lymphocytes % 32.4 Monocytes % 7.1 Eosinophils % 2.4 Basophils % 1.0 Absolute Neutrophils 4.2 Absolute Lymphocytes 2.4 Absolute Monocytes 0.5 Absolute Eosinophils 0.2 Absolute Basophils 0.1 Sodium 139.6 Potassium 4.6 Chloride 102 Carbon Dioxide 27 Anion Gap 11 BUN 18 Creatinine 0.69 Est GFR ( Amer) > 60 Est GFR (Non-Af Amer) > 60 Glucose 78 Calcium 10.6 H Total Bilirubin 0.7 Direct Bilirubin 0.3 Neonat Total Bilirubin Not Reportable Neonat Direct Bilirubin Not Reportable Neonat Indirect Bili Not Reportable AST 23 ALT 22 Alkaline Phosphatase 68 Total Protein 8.9 H Albumin 5.4 H Urine Color STRAW Urine Appearance CLEAR Urine pH 6.0 Ur Specific [place] 1.005 Urine Protein NEGATIVE Urine Glucose (UA) NEGATIVE Urine Ketones NEGATIVE Urine Blood MODERATE H Urine Nitrite NEGATIVE Urine Bilirubin NEGATIVE Urine Urobilinogen NEGATIVE Ur Leukocyte Esterase NEGATIVE Urine WBC (Auto) 1 Urine RBC (Auto) 2 Squamous Epi Cells Auto 1 Urine Mucus (Auto) RARE Urine Ascorbic Acid NEGATIVE Urine HCG, Qual NEGATIVE Limited or Localized CT 05/19/18 10:55 IMPRESSION: NO SIGNIFICANT OR ACUTE PROCESS IN THE ABDOMEN OR PELVIS. - Vital Signs Vital signs: Temp Pulse Resp BP Pulse Ox 98.3 F 65 16 128/76 H 100 05/19/18 12:07 05/19/18 12:07 05/19/18 12:07 05/19/18 12:07 05/19/18 12:07 - Laboratory Result Diagrams: 05/19/18 10:06 05/19/18 10:06 Laboratory results interpreted by me: 05/19/18 05/19/18 10:06 10:06 Calcium 10.6 H Total Protein 8.9 H Albumin 5.4 H Urine Blood MODERATE H Discharge - Discharge Clinical Impression: Renal colic on right side Condition: Stable Disposition: HOME, SELF-CARE Instructions: Flank Pain ([facility]) Additional Instructions: Please follow-up with your urologist that you have seen in the past. I have also listed below some urologist in the area. [email or web address] [address] [place] [facility] [email or web address] [address] [place] [address] Damon Randle [place] [facility] [email or web address] [address] Prescriptions: RX: Cephalexin Monohydrate [Keflex 500 mg Capsule] 500 mg PO BID 5 Days #10 capsule Phenazopyridine HCl [Pyridium] 200 mg PO TID #12 tablet Referrals: KYLE SAHA MD [NO LOCAL MD] - Follow up as needed
--- NOTE | 2018-05-19 11:40 | RADIOLOGY REPORT (SQ) ---
EXAM DESCRIPTION: CT LTD RENAL STONE PROTOCOL ON COMPLETED DATE/TIME: 05/19/2018 11:26 am REASON FOR STUDY: right flank pain, hematuria COMPARISON: CT abdomen pelvis 02/03/2018, 03/21/2015, 11/28/2010 TECHNIQUE: CT scan of the abdomen and pelvis performed without intravenous or oral contrast. Images reviewed with lung, soft tissue, and bone windows. Reconstructed coronal and sagittal MPR images revi ewed. All images stored on PACS. All CT scanners at this facility use dose modulation, iterative reconstruction, and/or weight based d osing when appropriate to reduce radiation dose to as low as reasonably achievable (ALARA). [facility]: Dose Right [facility]: CareDose [facility]: Dose Right [facility]: Teradose 4D [facility]: [employer] RADIATION DOSE: CT Rad equipment meets quality standard of care and radiation dose reduction techniq ues were employed. CTDIvol: 5.4 mGy. DLP: 252 mGy-cm.mGy. LIMITATIONS: None. FINDINGS: LOWER CHEST: No significant findings. No nodules or infiltrates. NON-CONTRASTED LIVER, SPLEEN, ADRENALS: Evaluation limited by lack of IV contrast. No identified sign ificant masses. PANCREAS: No masses. No peripancreatic inflammatory changes. GALLBLADDER: No identified stones by CT criteria. No inflammatory changes to suggest cholecystitis. RIGHT KIDNEY AND URETER: No suspicious masses. Assessment limited by lack of IV contrast. No signif icant calcifications. No hydronephrosis or hydroureter. LEFT KIDNEY AND URETER: No suspicious masses. Assessment limited by lack of IV contrast. No signifi cant calcifications. No hydronephrosis or hydroureter. AORTA AND RETROPERITONEUM: No aneurysm. No retroperitoneal masses or adenopathy. BOWEL AND PERITONEAL CAVITY: No obvious masses or inflammatory changes. No free fluid. APPENDIX: Surgically absent PELVIS, BLADDER, AND ABDOMINAL WALL:No abnormal masses. No free fluid. Bladder normal. BONES: No significant findings. OTHER: No other significant finding. IMPRESSION: NO SIGNIFICANT OR ACUTE PROCESS IN THE ABDOMEN OR PELVIS. COMMENT: Quality ID # [id number]: Final reports with documentation of one or more dose reduction techniques (e.g., Automated exposure control, adjustment of the mA and/or kV according to patient size, use of iterative reconstruction technique) TECHNICAL DOCUMENTATION: JOB ID: [id number] [employer]- All Rights Reserved Reading location - IP/workstation name: [email or web address]
[2018-05-19 12:08] VITALS: BP 128/76
== END 2018-05-19 12:07 | disposition home or self-care (01) ==
LOC: ER 09:21
DX: N23 Unspecified renal colic (principal); R10.9 Unspecified abdominal pain; R11.2 Nausea with vomiting, unspecified; F17.200 Nicotine dependence, unspecified, uncomplicated; Z87.440 Personal history of urinary (tract) infections; Z88.6 Allergy status to analgesic agent; Z88.0 Allergy status to penicillin; Z87.442 Personal history of urinary calculi
CPT/HCPCS: 99284; 96374; 96375; 36415; 87086; 85025; 81025; 87088; 80053; 81001; 76380; J1885; J2405

== ENCOUNTER 2018-05-24 19:30 | Emergency (ER) | payer OTHER ==
--- NOTE | 2018-05-24 20:00 | ER Document Report ---
ED Medical Screen (RME) - General Chief Complaint: Blood Pressure Problem Stated Complaint: BLOOD PRESSURE ISSUE Time Seen by Provider: 05/24/18 19:57 Notes: RAPID MEDICAL EVALUATION DISCLOSURE I have seen this patient as part of a Rapid Medical Evaluation and, if applicable, placed any initially appropriate orders. The patient will be seen and fully evaluated, including a full history and physical exam, by a provider (in Main ED or Fast Track) when a room becomes available. 23-year-old female here with complaints of episodes of feeling lightheaded, weak all over, "cold all over my body", blurry vision that initially started on Wednesday. She went to see her doctor and the blood pressure was 210/174. She was recommended to come here to the ED but she refused at that time. Her doctor put her on blood pressure medicine, of which she does not know the name, and she has been taking it daily at bedtime. The episode on that day lasted 1 hour before complete resolution. Today, the episode lasted 10 minutes but the symptoms were much more intense. She did not have any shortness of breath or chest pain. EXAM CTAB RRR TRAVEL OUTSIDE OF THE U.S. IN LAST 30 DAYS: No - Related Data Allergies/Adverse Reactions: codeine [Codeine] Allergy (Verified 05/19/18 09:22) rash, n and v hydrocodone [Hydrocodone] Allergy (Verified 05/19/18 09:22) oxycodone HCl [From Percocet] Allergy (Verified 05/19/18 09:22) rash Penicillins Allergy (Verified 05/19/18 09:22) rash tramadol Allergy (Verified 05/19/18 09:22) Past Medical History - Social History Family history: Reviewed & Not Pertinent Pulmonary Medical History: Reports: Hx Bronchitis - hx of Denies: Hx Asthma Renal/ Medical History: Reports: Hx Kidney Stones. Denies: Hx Peritoneal Dialysis Musculoskeltal Medical History: Denies Hx Arthritis, Reports Hx Musculoskeletal Trauma Psychiatric Medical History: Reports: Hx Anxiety Past Surgical History: Reports: Hx Appendectomy, Hx Kidney (Renal Surgery) - stents, Hx Nose Surgery - sinus surgery, Hx Orthopedic Surgery - right knee. Denies: Hx Hysterectomy, Hx Pacemaker - Immunizations Hx Diphtheria, Pertussis, Tetanus Vaccination: Yes Physical Exam - Vital signs Vitals: Temp Pulse Resp BP Pulse Ox 98.0 F 67 21 H 151/98 H 100 05/24/18 19:38 05/24/18 19:38 05/24/18 19:38 05/24/18 19:38 05/24/18 19:38 Course - Vital Signs Vital signs: Temp Pulse Resp BP Pulse Ox 98.0 F 67 21 H 151/98 H 100 05/24/18 19:38 05/24/18 19:38 05/24/18 19:38 05/24/18 19:38 05/24/18 19:38 Doctor's Discharge - Discharge Referrals: SIXTO OSBORN FNP [Primary Care Provider] - Follow up as needed
[2018-05-24 20:16] LABS: ABSOLUTE BASOPHILS # (AUTO) 0.1 10^3/uL (0.0-0.2); ABSOLUTE EOSINOPHILS # (AUTO) 0.2 10^3/uL (0.0-0.6); ABSOLUTE LYMPHOCYTES (AUTO) 3.1 10^3/uL (0.5-4.7); ABSOLUTE MONOCYTES (AUTO) 0.6 10^3/uL (0.1-1.4); ABSOLUTE NEUT (AUTO) 5.6 10^3/uL (1.7-8.2); EOSINOPHILS % (AUTO) 2.3 % (0-6); HEMATOCRIT 40.5 % (36.0-47.0); HEMOGLOBIN 14.2 g/dL (12.0-15.5); LYMPHOCYTES % (AUTO) 32.1 % (13-45); MEAN CORPUSCULAR HEMOGLOBIN 31.8 pg (27.0-33.4); MEAN CORPUSCULAR VOLUME 91 fl (80-97); MONOCYTES % (AUTO) 6.5 % (3-13); PLATELET COUNT 251 10^3/uL (150-450); RED BLOOD COUNT 4.46 10^6/uL (3.72-5.28); RED CELL DISTRIBUTION WIDTH 12.2 % (11.5-14.0); SEGMENTED NEUTROPHILS % (AUTO) 58.1 % (42-78); TOTAL CELLS COUNTED % (AUTO) 100 %; WHITE BLOOD COUNT 9.7 10^3/uL (4.0-10.5)
[2018-05-24 20:38] LABS: ALANINE AMINOTRANSFERASE 15 U/L (9-52); ALBUMIN 4.6 g/dL (3.5-5.0); ALKALINE PHOSPHATASE 57 U/L (38-126); ANION GAP 11 (5-19); ASPARTATE AMINO TRANSFERASE 26 U/L (14-36); BILIRUBIN,DIRECT 0.2 mg/dL (0.0-0.4); BILIRUBIN,TOTAL 0.8 mg/dL (0.2-1.3); BLOOD UREA NITROGEN 22 mg/dL (7-20); CALCIUM 9.3 mg/dL (8.4-10.2); CARBON DIOXIDE 26 mmol/L (22-30); CHLORIDE 102 mmol/L (98-107); GLUCOSE 87 mg/dL (75-110); POTASSIUM 3.4 mmol/L (3.6-5.0); SODIUM 138.5 mmol/L (137-145); TOTAL PROTEIN 7.8 g/dL (6.3-8.2)
--- NOTE | 2018-05-24 21:21 | ER Document Report ---
ED General - General Chief Complaint: Blood Pressure Problem Stated Complaint: BLOOD PRESSURE ISSUE Time Seen by Provider: 05/24/18 19:57 Notes: Patient is a 23-year-old female that comes to the emergency department for chief complaint of an episode prior to arrival where she felt lightheaded, weak, "cold all over the body", and tingling sensation in her hands and feet. She states that she did not pass out, she states that she had noticed a rash over the front of her chest and she had taken Benadryl prior to this happening. She denies di fficulty swallowing or breathing, swelling of the face, rash anywhere else, or current rash. She denies shortness of breath or chest pain. She denies fever, nausea, vomiting. She states that she was evaluated recently and found to have hypertension, she is already diagnosed with pots, she is on nadolol, cephalexin, prazosin, and an anxiety medicine that she cannot remember the name of. She den ies smoking, frequent alcohol, or any recreational drugs. She denies any current symptoms. TRAVEL OUTSIDE OF THE [place] IN LAST 30 DAYS: No - Related Data Allergies/Adverse Reactions: codeine [Codeine] Allergy (Verified 05/19/18 09:22) rash, n and v hydrocodone [Hydrocodone] Allergy (Verified 05/19/18 09:22) oxycodone HCl [From Percocet] Allergy (Verified 05/19/18 09:22) rash Penicillins Allergy (Verified 05/19/18 09:22) rash tramadol Allergy (Verified 05/19/18 09:22) Past Medical History - General Information source: Patient - Social History Smoking Status: Current Every Day Smoker Chew tobacco use (# tins/day): No Smoking Education Provided: Yes - <3 min Frequency of alcohol use: None Drug Abuse: None Lives with: Family Family History: DM, Hypertension, Malignancy, Thyroid Disfunction Patient has suicidal ideation: No Patient has homicidal ideation: No Pulmonary Medical History: Reports: Hx Bronchitis - hx of Denies: Hx Asthma Renal/ Medical History: Reports: Hx Kidney Stones. Denies: Hx Peritoneal Dialysis Musculoskeletal Medical History: Denies Hx Arthritis, Reports Hx Musculoskeletal Trauma Psychiatric Medical History: Reports: Hx Anxiety Past Surgical History: Reports: Hx Appendectomy, Hx Kidney (Renal Surgery) - stents, Hx Nose Surgery - sinus surgery, Hx Orthopedic Surgery - right knee. Denies: Hx Hysterectomy, Hx Pacemaker - Immunizations Hx Diphtheria, Pertussis, Tetanus Vaccination: Yes Review of Systems - Review of Systems Constitutional: No symptoms reported EENT: No symptoms reported Cardiovascular: See HPI Respiratory: No symptoms reported Gastrointestinal: No symptoms reported Genitourinary: No symptoms reported Female Genitourinary: No symptoms reported Musculoskeletal: No symptoms reported Skin: See HPI Hematologic/Lymphatic: No symptoms reported Neurological/Psychological: No symptoms reported Physical Exam - Vital signs Vitals: Temp Pulse Resp BP Pulse Ox 98.0 F 67 21 H 151/98 H 100 05/24/18 19:38 05/24/18 19:38 05/24/18 19:38 05/24/18 19:38 05/24/18 19:38 - Notes Notes: GENERAL: Alert, interacts well. No acute distress. HEAD: Normocephalic, atraumatic. EYES: Pupils equal, round, and reactive to light. Extraocular movements intact. ENT: Oral mucosa moist, tongue midline. Oropharynx unremarkable. Airway patent. Nares patent, no nasal septal hematoma, TM's intact. NECK: Full range of motion. Supple. Trachea midline. LUNGS: Clear to auscultation bilaterally, no wheezes, rales, or rhonchi. No respiratory distress. HEART: Regular rate and rhythm. No murmur ABDOMEN: Soft, non-tender. Non-distended. Bowel sounds present in all 4 quadrants. GENITOURINARY: Deferred EXTREMITIES: Moves all 4 extremities spontaneously. No edema, normal radial and dorsalis pedis pulses bilaterally. No cyanosis. BACK: no cervical, thoracic, lumbar midline tenderness. No saddle anesthesia, normal distal neurovascular exam. NEUROLOGICAL: Alert and oriented x3. Normal speech. [cranial nerves II through XII grossly intact]. PSYCH: Normal affect, normal mood. SKIN: Warm, dry, normal turgor. No rashes or lesions noted. Course - Re-evaluation Re-evalutation: EKG sinus rhythm with no T wave inversions or ST segment changes in consecutive leads. Normal QTC. Normal WI interval. Patient asymptomatic on my evaluation. Blood pressure is unremarkable. No tachycardia. Normal neurologic exam. Cardiac monitoring telemetry with no concerning abnormality. I do not see any evidence of rash or anaphylaxis. Symptoms reportedly resolved after Benadryl. CBC unremarkable, no anemia. Chemistry shows mild hypokalemia, supplemented. Urinalysis unremarkable. test is negative. TSH is unremarkable. Discussed results with patient in detail. Patient will be placed on 1 week of antihistamines because of her rash earlier. She states that she has not felt great ever since she was started on additional blood pressure medications after she was seen by psychiatry and had a hypertensive episode. She states that she has been tracking her blood pressures previously and her blood pressure systolic average was 130s and diastolic 80s-90s. She states she does not want to take her blood pressure medication, not the new one. She will continue her nadolol. She states she is going to stop taking it and she will be tracking this again and she will follow-up with primary care. This was agreed upon after discussion. Discussed other causes of syncope, follow-up, and return precau tions in detail with patient and significant other. Still asymptomatic even with standing. Stable at time of discharge. - Vital Signs Vital signs: Temp Pulse Resp BP Pulse Ox 98.0 F 67 12 114/67 98 05/24/18 19:38 05/24/18 19:38 05/24/18 23:01 05/24/18 23:01 05/24/18 23:01 - Laboratory Result Diagrams: 05/24/18 20:09 05/24/18 20:09 Laboratory results interpreted by me: 05/24/18 05/24/18 20:09 20:09 Potassium 3.4 L BUN 22 H Urine Ketones TRACE H Urine Blood MODERATE H Discharge - Discharge Clinical Impression: Rash, Near syncope Condition: Stable Disposition: HOME, SELF-CARE Additional Instructions: I recommend taking the cetirizine prescribed for 1 week because of the rash that you had earlier. If you continue to get hives frequently you should consider have allergy testing performed. Return immediately if you develop severe rash, difficulty breathing, swelling of the face or tongue, difficulty swallowing, or any other concerning symptoms. Your potassium has been supplemented. Increase potassium in your diet (leafy greens, bananas, etc.). Your symptoms of almost passing out can be caused by new blood pressure medications. A blood pressure log can be helpful (i.e. checking twice a day, recording this for a week, follow-up with primary care for additional management of blood pressure). Return if you worsen including passing out, chest pain, difficulty breathing, or any other concerning or worsening symptoms. Prescriptions: Cetirizine HCl [24Hour Allergy] 10 mg PO DAILY #30 tablet Referrals: SIXTO OSBORN FNP [Primary Care Provider] - Follow up as needed
[2018-05-24 21:34] LABS: APPEARANCE,URINE CLEAR; BILIRUBIN,URINE NEGATIVE (NEGATIVE); COLOR,URINE COLORLESS; GLUCOSE, URINE NEGATIVE (NEGATIVE); KETONES,URINE TRACE mg/dL (NEGATIVE); LEUKOCYTE ESTERASE,URINE NEGATIVE (NEGATIVE); NITRITE,URINE NEGATIVE (NEGATIVE); PROTEIN,URINE NEGATIVE (NEGATIVE); URINE SPECIFIC GRAVITY 1.004; UROBILINOGEN,URINE NEGATIVE mg/dL (<2.0)
[2018-05-24] MEDS ORDERED: POTASSIUM CHLORIDE 10 MEQ CAPSULE.ER PO ONE (22:35)
[2018-05-24 23:32] VITALS: BP 114/67
--- NOTE | 2018-05-25 08:03 | EKG REPORT ---
SEVERITY:- NORMAL ECG - SINUS RHYTHM : Confirmed by: Joseph Koenig MD 25-May-2018 08:02:45
== END 2018-05-24 23:46 | disposition home or self-care (01) ==
LOC: ER 19:30
DX: R21 Rash and other nonspecific skin eruption (principal); R42 Dizziness and giddiness; R53.1 Weakness; R20.0 Anesthesia of skin; F17.200 Nicotine dependence, unspecified, uncomplicated
CPT/HCPCS: 36415; 80053; 81001; 81025; 83735; 84443; 85025; 93005; 93010; 99284

== ENCOUNTER 2018-05-25 10:29 | Emergency (ER) | payer OTHER ==
[2018-05-25] MEDS ORDERED: BUSPIRONE HCL 10 MG TABLET PO ONE (10:55)
[2018-05-25] MEDS ORDERED: CLONIDINE HCL 0.1 MG TABLET PO ONE (10:55)
--- NOTE | 2018-05-25 10:56 | ER Document Report ---
ED Medical Screen (RME) - General Chief Complaint: Near Syncope Stated Complaint: BLOOD PRESSURE Time Seen by Provider: 05/25/18 10:47 Notes: 23 years old female presents today again after being seen last night, with elevated blood pressure described as a Stalevo 200. As well as breaking out into erythematous urticarial rash on and off. She had it last night also this morning. But by the time she came to the ER it has dissipated. Has a history of anxiety, taking Prozac. Denies any fever chills or other constitutional symptoms. TRAVEL OUTSIDE OF THE [place] IN LAST 30 DAYS: No - Related Data Allergies/Adverse Reactions: codeine [Codeine] Allergy (Verified 05/25/18 10:33) rash, n and v hydrocodone [Hydrocodone] Allergy (Verified 05/25/18 10:33) oxycodone HCl [From Percocet] Allergy (Verified 05/25/18 10:33) rash Penicillins Allergy (Verified 05/25/18 10:33) rash tramadol Allergy (Verified 05/25/18 10:33) Past Medical History - Social History Chew tobacco use (# tins/day): No Frequency of alcohol use: Occasional Drug Abuse: None Family history: Reviewed & Not Pertinent Pulmonary Medical History: Reports: Hx Bronchitis - hx of Denies: Hx Asthma Renal/ Medical History: Reports: Hx Kidney Stones. Denies: Hx Peritoneal Dialysis Musculoskeltal Medical History: Denies Hx Arthritis, Reports Hx Musculoskeletal Trauma Psychiatric Medical History: Reports: Hx Anxiety Past Surgical History: Reports: Hx Appendectomy, Hx Kidney (Renal Surgery) - stents, Hx Nose Surgery - sinus surgery, Hx Orthopedic Surgery - right knee. Denies: Hx Hysterectomy, Hx Pacemaker - Immunizations Hx Diphtheria, Pertussis, Tetanus Vaccination: Yes Physical Exam - Vital signs Vitals: Temp Pulse Resp BP Pulse Ox 99.0 F 64 18 143/95 H 100 05/25/18 10:43 05/25/18 10:43 05/25/18 10:43 05/25/18 10:43 05/25/18 10:43 Course - Vital Signs Vital signs: Temp Pulse Resp BP Pulse Ox 99.0 F 64 18 143/95 H 100 05/25/18 10:43 05/25/18 10:43 05/25/18 10:43 05/25/18 10:43 05/25/18 10:43 Doctor's Discharge - Discharge Referrals: SIXTO OSBORN FNP [Primary Care Provider] - Follow up as needed
[2018-05-25 12:20] LABS: URINE AMPHETAMINES SCREEN NEGATIVE; URINE BARBITURATES SCREEN NEGATIVE; URINE BENZODIAZEPINES SCREEN NEGATIVE; URINE COCAINE SCREEN NEGATIVE; URINE MARIJUANA (THC) SCREEN NEGATIVE; URINE METHADONE SCREEN NEGATIVE; URINE PHENCYCLIDINE SCREEN NEGATIVE
[2018-05-25] MEDS ORDERED: MECLIZINE HCL 12.5 MG TABLET PO ONE (14:49)
[2018-05-25] MEDS ORDERED: NORMAL SALINE 1000 ML 1,000 ML IV ONE (14:49)
--- NOTE | 2018-05-25 14:53 | ER Document Report ---
ED General - General Chief Complaint: Near Syncope Stated Complaint: BLOOD PRESSURE Time Seen by Provider: 05/25/18 10:47 Mode of Arrival: Ambulatory Information source: Patient, Parent, [facility] Records Notes: 23-year-old female with garcia, hypertension, anxiety, depression, PTSD presents for the second time in 2 days with complaint of dizziness, urticarial rash and dizziness that have all resolved upon my exam. Patient was seen here yesterday for similar symptoms. Patient is under cardiology care and was started on a new blood pressure medication on Wednesday which is when her dizziness and rash started. Patient currently denies headache, nausea, vomiting, chest pain, palpitations, shortness of breath. Patient has had prior similar symptoms. She states that she was on a Holter monitor for 30 days. TRAVEL OUTSIDE OF THE [place] IN LAST 30 DAYS: No - HPI Onset: Just prior to arrival Onset/Duration: Gone Quality of pain: No pain Severity: None Associated symptoms: Other - Dizziness. denies: Chest pain, Shortness of breath Exacerbated by: Denies Relieved by: Denies Similar symptoms previously: Yes Recently seen / treated by doctor: Yes - Related Data Allergies/Adverse Reactions: codeine [Codeine] Allergy (Verified 05/25/18 10:33) rash, n and v hydrocodone [Hydrocodone] Allergy (Verified 05/25/18 10:33) oxycodone HCl [From Percocet] Allergy (Verified 05/25/18 10:33) rash Penicillins Allergy (Verified 05/25/18 10:33) rash tramadol Allergy (Verified 05/25/18 10:33) Past Medical History - General Information source: Patient, [facility] Records - Social History Smoking Status: Current Every Day Smoker Cigarette use (# per day): Yes - 5 Chew tobacco use (# tins/day): No Smoking Education Provided: Yes - Smoking cessation counseling was provided for 4 minutes at the bedside Frequency of alcohol use: Occasional Drug Abuse: None Lives with: Family Family History: DM, Hypertension, Malignancy, Thyroid Disfunction Patient has suicidal ideation: No Patient has homicidal ideation: No Pulmonary Medical History: Reports: Hx Bronchitis - hx of Denies: Hx Asthma Renal/ Medical History: Reports: Hx Kidney Stones. Denies: Hx Peritoneal Dialysis Musculoskeletal Medical History: Denies Hx Arthritis, Reports Hx Musculoskeletal Trauma Psychiatric Medical History: Reports: Hx Anxiety, Hx Depression - anxiety Past Surgical History: Reports: Hx Appendectomy, Hx Kidney (Renal Surgery) - stents, Hx Nose Surgery - sinus surgery, Hx Orthopedic Surgery - right knee. Denies: Hx Hysterectomy, Hx Pacemaker - Immunizations Hx Diphtheria, Pertussis, Tetanus Vaccination: Yes Review of Systems - Review of Systems Notes: REVIEW OF SYSTEMS: CONSTITUTIONAL : Denies fever, chills, or sweats. Denies recent illness. Denies weight loss, recent hospitalizations. EENT: Denies visual changes, eye pain. Denies sore throat, oral lesions, difficulty swallowing. CARDIOVASCULAR: Denies chest pain. Denies palpitations. Denies lower extremity edema. RESPIRATORY: Denies cough. Denies shortness of breath, wheezing. GASTROINTESTINAL: Denies abdominal pain or distention. Denies nausea, vomiting, or diarrhea. Denies blood in vomitus, stools, or per rectum. Denies black, tarry stools. Denies constipation. GENITOURINARY: Denies difficulty urinating, painful urination, frequency, blood in urine, or vaginal discharge. MUSCULOSKELETAL: Denies back or neck pain or stiffness. Denies joint pain or swelling. SKIN: Denies lesions or sores. HEMATOLOGIC : Denies easy bruising or bleeding. LYMPHATIC: Denies swollen glands. NEUROLOGICAL: Denies confusion or altered mental status. Denies loss of consciousness. Denies headache. Denies weakness or paralysis. Denies problems difficulty with ambulation, slurred speech. Denies sensory loss, numbness, or tingling. Denies seizures. PSYCHIATRIC: Denies anxiety or stress. Denies depression, suicidal ideation, or homicidal ideation. Denies visual or auditory hallucinations. PHYSICAL EXAMINATION: GENERAL: Well-appearing, well-nourished and in no acute distress. HEAD: Atraumatic, normocephalic. EYES: Pupils equal round and reactive to light, extraocular movements intact, conjunctiva are normal. ENT: Nares patent, oropharynx clear without exudates. Moist mucous membranes. NECK: Normal range of motion, supple without lymphadenopathy LUNGS: Breath sounds clear to auscultation bilaterally and equal. No wheezes rales or rhonchi. HEART: Regular rate and rhythm without murmurs ABDOMEN: Soft, nontender, nondistended abdomen. No guarding, no rebound. No masses appreciated. Female : deferred Musculoskeletal: Normal range of motion, no pitting or edema. No cyanosis. NEUROLOGICAL: Cranial nerves grossly intact. Normal speech, normal gait. Normal sensory, motor exams PSYCH: Normal mood, normal affect. SKIN: Warm, Dry, normal turgor, no rashes or lesions noted. Physical Exam - Vital signs Vitals: Temp Pulse Resp BP Pulse Ox 99.0 F 64 18 143/95 H 100 05/25/18 10:43 05/25/18 10:43 05/25/18 10:43 05/25/18 10:43 05/25/18 10:43 Course - Re-evaluation Re-evalutation: Temp Pulse Resp BP Pulse Ox 98.7 F 61 13 116/63 100 05/25/18 17:00 05/25/18 17:00 05/25/18 17:00 05/25/18 17:00 05/25/18 17:00 Laboratory 05/25/18 05/25/18 11:35 11:35 ESR 7 Urine Opiates Screen NEGATIVE Urine Methadone Screen NEGATIVE Ur Barbiturates Screen NEGATIVE Ur Phencyclidine Scrn NEGATIVE Ur Amphetamines Screen NEGATIVE U Benzodiazepines Scrn NEGATIVE Urine Cocaine Screen NEGATIVE U Marijuana (THC) Screen NEGATIVE 05/25/18 22:29 23-year-old female with garcia, hypertension, anxiety, depression, PTSD presents for the second time in 2 days with complaint of dizziness, urticarial rash and dizziness that have all resolved upon my exam. Patient was seen here yesterday for similar symptoms. Patient is under cardiology care and was started on a new blood pressure medication on Wednesday which is when her dizziness and rash started. Patient has not unremarkable exam, unremarkable labs from today and yesterday. Advised the patient to discontinue her new blood pressure medication as symptoms all started after initiation of this new medication. Advised her to contact her math coach and prescribing physician. Patient was provided IV fluids during her ED course. Parents are at the bedside. Patient was evaluated and treated as appropriate for the patient's presenting symptoms and complaint, with consideration of any critical or life threatening conditions that may be associated with their obtained history and exam as noted above. All results were discussed with patient. Patient provided the opportunity to ask questions, and express concerns. Patient was educated on treatments based on their presumed diagnosis as noted above. At this time we will discharge the patient with return precautions and follow-up recommendations. Verbal discharge instructions given a the bedside. Medication warnings reviewed. Patient is in agreement with this plan and has verbalized understanding of return precautions. After careful consideration I feel that that patient can be safely discharged from the emergency department, they were advised to followup with a primary care physician in 2-3 days. Dictation on this chart was performed using voice recognition software and may result in unintended grammatical, spelling, syntax or errors. 05/26/18 03:00 - Vital Signs Vital signs: Temp Pulse Resp BP Pulse Ox 98.7 F 61 13 116/63 100 05/25/18 17:00 05/25/18 17:00 05/25/18 17:00 05/25/18 17:00 05/25/18 17:00 - EKG Interpretation by Me EKG shows normal: Sinus rhythm Rate: Normal Rhythm: NSR When compared to previous EKG there are: No significant change Discharge - Discharge Clinical Impression: Dizziness, Near syncope Medication reaction Qualifiers: Encounter type: initial encounter Qualified Code(s): T50.905A - Adverse effect of unspecified drugs, medicaments and biological substances, initial encounter Condition: Good Disposition: HOME, SELF-CARE Instructions: Dizziness ([facility]) Additional Instructions: Your dizziness and rash could be contributed to the new blood pressure medication restarted last week. I would discontinue this medication and call the doctor who prescribed this for you. Also recommend follow-up with cardiology. Referrals: SIXTO OSBORN FNP [Primary Care Provider] - Follow up as needed
[2018-05-25 17:01] VITALS: BP 116/63
--- NOTE | 2018-05-26 07:47 | EKG REPORT ---
SEVERITY:- BORDERLINE ECG - SINUS RHYTHM BORDERLINE T ABNORMALITIES, ANTERIOR LEADS ACCELERATED AV CONDUCTION : Confirmed by: Joseph Koenig MD 26-May-2018 07:46:30
== END 2018-05-25 17:00 | disposition home or self-care (01) ==
LOC: ER 10:29
DX: R55 Syncope and collapse (principal); T50.905A Adverse effect of unspecified drugs, medicaments and biological substances, initial encounter; I10 Essential (primary) hypertension; F17.210 Nicotine dependence, cigarettes, uncomplicated; Z71.6 Tobacco abuse counseling; Z88.5 Allergy status to narcotic agent; Z88.0 Allergy status to penicillin
CPT/HCPCS: 93005; 99406; 99284; 36415; 85652; 80307; 93010; J3490; J7030